=== PATIENT | male | born 1990 | race Caucasian/White ===

== ENCOUNTER 2025-02-03 13:03 | Outpatient (AMB) | payer OTHER, SELFPAY ==
--- NOTE | 2025-02-03 13:10 | MHC.PC.OV ---
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 Intake Note: patient here for new patient visit Manager Salt Required: No Allergies ibuprofen Adverse Reaction (Intermediate, Verified 02/03/25 13:17) asthma Tobacco use date assessed: 02/03/25 Dental Screening Dental Screen Date: 02/03/25 Did you have a dental visit in the last 12 months?: Yes Did you have a dental problem in the last 6 months where you did not have access to dental care?: No Was dental information given to patient?: Patient has dentist HPI HPI Comments History of Present Illness Details 35 year old male with a past medical history of long haul COVID, narcolepsy and cataplexy, anxiety, allergies presenting for follow up Asthma: Generally controlled unless he gets sick/uri etc. Cataplexy and narcolepsy: Follows with sleep medicine in [place]. Continues on nuvigil Long haul COVID essentially resolved with exception of persistent tachycardia. Still takes metoprolol. Vertigo, lightheadedness, fatigue resolved. He has extensive cardiac workup with Dr Ryan/[facility] previously. Noticed bump in the mid, left abdomen. Not painful. Has had for 1-2 years ROS see HPI PHYSICAL EXAM: GENERAL: Alert and oriented x 3. NAD EYES: EOMI. Anicteric. HENT: Moist mucous membranes. No scleral icterus. No cervical lymphadenopathy. LUNGS: Clear to auscultation bilaterally. CARDIOVASCULAR: Regular rate and rhythm. No murmur. No JVD. ABDOMEN: Soft, non-tender +bs EXTREMITIES: No edema. Non-tender. SKIN: small subcutaneous mass abdomen NEUROLOGIC: No focal neurological deficits. CN II-XII grossly intact PSYCHIATRIC: Cooperative. 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 1. Little interest or pleasure in doing things: not at all 2. Feeling down, depressed, or hopeless: not at all 3. Trouble falling or staying asleep, or sleeping too much: not at all 4. Feeling tired or having little energy: not at all 5. Poor appetite or overeating: not at all 6. Feeling bad about yourself - or that you are a failure or have let yourself or your family down: not at all 7. Trouble concentrating on things, such as reading the newspaper or watching television: not at all 8. Moving or speaking so slowly that other people could have noticed. Or the opposite - being so fidgety or restless that you have been moving around a lot more than usual: not at all 9. Thoughts that you would be better off or of hurting yourself in some way: not at all Total score: 0 Depression Screening Interpretation: Negative Depression Screening Done: Yes 38616 - PHQ-9 Billing: Yes Source: Developed by Drs. Toby Hickman, Lisette Jacques, Prakash Marte and colleagues, with an educational suni from [employer]. Thrive Questionnaire Date Thrive assessed: 02/03/25 I am a: Patient What is your living situation today?: I have a steady place to live Within the past 12 months, did the food you bought not last and you didn't have the money to get more?: Never true Within the past 12 months, did you worry whether your food would run out before you got money to buy more?: Never true Do you have trouble paying for medicines?: No Do you have trouble getting transportation to medical appointments?: No Do you have trouble paying your heating and electricity bill?: No Do you have trouble taking care of your child, family member or friend?: No Do you have trouble with day-to-day activities such as bathing, preparing meals, shopping, managing finances, etc.?: No Are you currently unemployed and looking for a job?: No Are you interested in more education?: No Please select the resources that you would like help with: None Currently or been in a relationship where the following occur: No concerns reported THRIVE Score: 0 AUDIT C Alcohol Use Questionnaire (AUDIT-C) 1. How often do you have a drink containing alcohol?: 2-4 times a month 2. How many drinks containing alcohol do you have on a typical day when you are drinking?: 1 or 2 3. How often do you have six or more drinks on one occasion?: Never Total Score: 2 JOHNNY-7 AMB Questionnaire JOHNNY-7 Date JOHNNY - 7 assessed: 02/03/25 Feeling nervous, anxious, or on edge: 0 = Not at all Not being able to stop or control worryin = Not at all Worrying too much about different things: 0 = Not at all Trouble relaxin = Several days Being so restless that it is hard to sit still: 0 = Not at all Becoming easily annoyed or irritable: 0 = Not at all Feeling afraid as if something awful might happen: 0 = Not at all Total JOHNNY-7 score (0-4 normal; 5-9 mild; 10-14 moderate; 15-21 severe): 1 Source: Developed by Drs. Toby Hickman, Lisette Jacques, Prakash Marte and colleagues, with an educational suni from [employer]. JOHNNY-7 Assessment Billing JOHNNY-7 Assessment Tool: JOHNNY-7 Assessment 96151 ACT Questionnaire In the past 4 weeks, how much of the time did your asthma keep you from getting as much done at work, school or at home?: None of the time During the past 4 weeks, how often have you had shortness of breath?: 1-2 times a week During the past 4 weeks, how often did your asthma symptoms wake you up at night or earlier than usual in the morning?: Not at all During the past 4 weeks, how often have you had to use your rescue inhaler or nebulizer medication?: Once a week or less How would you rate your asthma control during the past 4 weeks?: Well controlled Score: 22 Physical exam (Primary Care) Vital Signs: Last Vital Signs Temp 98.1 F 02/03/25 13:24 Pulse 74 02/03/25 13:24 Resp 16 02/03/25 13:24 BP 112/60 02/03/25 13:24 Pulse Ox 98 02/03/25 13:24 Oxygen Delivery Method Room Air 02/03/25 13:24 BMI result Body Mass Index 27.6 Tobacco/Smoking Status: Tobacco use Status Tobacco use date assessed 02/03/25 02/03/25 13:21 Patient Tobacco Use Status Never used Tobacco 02/03/25 13:21 e-Cigarette/Vaping Use Never Used 02/03/25 13:21 PHQ-9: PHQ-9 Score PHQ-9: Total score 0 02/03/25 13:33 Depression Screening Interpretation: Negative Thrive Assessment: Date of Thrive Assessment Date Thrive assessed 02/03/25 02/03/25 13:13 Currently or been in a relationship where the following occur: No concerns reported Coding Level of Care Code Est Pt Level 5 (99399) Diagnoses 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 Narcolepsy type: primary with cataplexy Moderate persistent asthma without complication J45.40 Asthma complication type: uncomplicated COVID-19 long hauler U09.9 Additional Codes JOHNNY-7 Assessment Billing - JOHNNY-7 Assessment Tool: JOHNNY-7 Assessment 00390 ([id number]) PHQ-9 - 13242 - PHQ-9 Billing: Yes ([id number]) Time Spent (min) 45 Assessment & Plan Assessment & Plan (1) Narcolepsy: Code(s): G47.419 - Narcolepsy without cataplexy Category: Medical Qualifiers: Narcolepsy type: primary with cataplexy Qualified Code(s): G47.411 - Narcolepsy with cataplexy Plan: continue follow up neurology stable on current medications (2) Moderate persistent asthma: Code(s): J45.40 - Moderate persistent asthma, uncomplicated Category: Medical Qualifiers: Asthma complication type: uncomplicated Qualified Code(s): J45.40 - Moderate persistent asthma, uncomplicated Plan: stable on current medications (3) COVID-19 long hauler: Code(s): U09.9 - Post COVID-19 condition, unspecified Category: Medical Plan: resolved with exception of ongoing well treated tachycardia Plan Abdominal mass, likley lipoma-u/s ordered Orders: Orders Comprehensive Met. Panel 02/03/25 Z13.0 - Encounter for screening for diseases of the blood and blood-forming organs and certain disorders involving the immune mechanism, Z13.220 - Encounter for screening for lipoid disorders, Z13.228 - Encounter for screening for other metabolic disorders, Z13.29 - Encounter for screening for other suspected endocrine disorder Lipid Panel 02/03/25 Z13.0 - Encounter for screening for diseases of the blood and blood-forming organs and certain disorders involving the immune mechanism, Z13.220 - Encounter for screening for lipoid disorders, Z13.228 - Encounter for screening for other metabolic disorders, Z13.29 - Encounter for screening for other suspected endocrine disorder TSH reflex Free T4 02/03/25 Z13.0 - Encounter for screening for diseases of the blood and blood-forming organs and certain disorders involving the immune mechanism, Z13.220 - Encounter for screening for lipoid disorders, Z13.228 - Encounter for screening for other metabolic disorders, Z13.29 - Encounter for screening for other suspected endocrine disorder UA w Microscopic 02/03/25 Z13.0 - Encounter for screening for diseases of the blood and blood-forming organs and certain disorders involving the immune mechanism, Z13.228 - Encounter for screening for other metabolic disorders, Z13.29 - Encounter for screening for other suspected endocrine disorder Complete Blood Count Auto Diff 02/03/25 Z13.0 - Encounter for screening for diseases of the blood and blood-forming organs and certain disorders involving the immune mechanism, Z13.220 - Encounter for screening for lipoid disorders, Z13.228 - Encounter for screening for other metabolic disorders, Z13.29 - Encounter for screening for other suspected endocrine disorder US abdomen limited 02/03/25 R19.00 - Intra-abdominal and pelvic swelling, mass and lump, unspecified site Medications: New metoprolol succinate ER 50 mg PO DAILY 90 tabs 3RF
[2025-02-03 13:24] VITALS: BP 112/60; PULSE 74; RESP 16; TEMP 36.7; O2SAT 98; BMI 27.6
--- OUTSIDE RECORDS SUMMARY | 2025-02-03 14:40 | XMS_ITS | Clinical Summary ---
Author Organization [address] [facility] Address [address] [place] [address] Phone Care Team Providers Care Crm Technical Lead Name Role Phone Osiel Tierney MD Primary Care Provide r Allergies Active Allergy Reactions Criticality Noted Date Comments Cat Dander 12/08/2014 Runny nose Dog Dander 12/08/2014 Nsaids (Non-Steroidal Anti-Inflammatory Drug) Wheezing 01/24/2006 chest tightness noted sometime in the past when ibuprofen taken. Pollen Extracts 12/08/2014 Swelling eyes , itchy throat Shellfish Containing Products 10/17/2014 Medications fluticasone-tesfaye meterol (ADVAIR DISKUS) 250-50 mcg/dose diskus inhaler Inhale 1 puff by mouth. 3 Active fluticasone-tesfaye meterol (ADVAIR DISKUS) 250-50 mcg/dose diskus inhaler Inhale 1 Dose 2 (two) times a day. 3 Active budesonide-form oteroL (Symbicort) 160-4.5 mcg/actuation inhaler Inhale 2 puffs by mouth. 3 Active metoprolol succinate (TOPROL-XL) 25 mg 24 hr tablet Take 1 tablet (25 mg total) by mouth 1 (one) time each day. Active montelukast (SINGULAIR) 10 mg tablet Take 1 tablet (10 mg total) by mouth. 0 Active EPINEPHrine (EpiPen 2-Antonio) 0.3 mg/0.3 mL injection Inject 1 Dose as directed. 0 Active ketoconazole (NIZORAL) 2 % cream Apply topically 2 times daily for 2 weeks. 0 Active armodafiniL (NUVIGIL) 250 mg tablet Take 1 tablet (250 mg total) by mouth 1 (one) time each day. 9 Active acetaminophen (Tylenol Extra Strength) 500 mg tablet Take by mouth. Activ e predniSONE (DELTASONE) 20 mg tablet 2 tab po x 1 and then 1 tab po qd x 6 days 8 each 4 Active albuterol HFA (PROAIR HFA ; PROVENTIL HFA ; VENTOLIN HFA) 90 mcg/actuation inhaler Inhale 2 puffs by mouth every 6 (six) hours if needed for wheezing. 6.7 g 11 4 11/01/20 25 Active albuterol 2.5 mg /3 mL (0.083 %) nebulizer solution Take 3 mL (2.5 mg total) by nebulization every 4 (four) hours if needed for wheezing. 200 mL 1 4 Active Active Problems Problem Noted Date Diagnosed Date COVID-19 marciano gonzalez 08/27/2021 Postviral fatigue syndrome 05/05/2021 Overview (01/22/2024): Last Assessment & Plan: Looking for extension of FMLA. Letter is provided. The patient may return to work on 05/10/21 with following restrictions- light duty, sedentary work, limited to 6 hours per day- See below for more details, only lifting up to 10 lbs, no pushing or pulling and other heavy work. Initial 3 weeks till 05/31/2021-- 6 hours per day for 3 days a week-->next 2 weeks 06/14/2021-- 6 hours per day for 5 days a week-->next 3 weeks 07/05/2021-->8hr days 5 days a week of sedentary work. He will be reevluated for determining complete return to work with out restrictions. Meantime rferred to POST COVID clinic at [facility] Infectious disease for further evaluation. He has Appointment scheduled with Lia Alvarado in 07/2021. History of 2019 novel coronavirus disease (COVID -19) 04/04/2021 Tachycardia 03/03/2021 Overview (01/22/2024): Last Assessment & Plan: Patient feels fatigued I told him I suspect that is Covid he still has an awful chronic cough his lungs are clear this may be a tracheobronchitis and is scheduled to see pulmonary medicine on Monday mainly for the pulmonary nodule found on CAT scan. He needs to discuss the cough with pulmonary to see if they needed continuation of a course of steroids or other therapy. Being a viral illness there may be no course other than supportive care. The cough is tiring him out increasing his heart rate is making fatigued short of breath and lethargic. I doubt there is any evidence of Covid myopathy the patient will have an echocardiogram done this Monday if the echo is normal then I do not see a need for any further cardiac work-up. He is mildly orthostatic which I suspect is secondary to volume depletion I encouraged him to hydrate regularly. The plan will be the echo. He still has mild orthostatic symptoms on exam and signs on exam but no evidence of overt heart failure no coronary disease. No thyroid disease no anemia no stimulants I told him he can start walking but not exercising heavy until we get the echocardiogram done. He can participate in walking and yoga without limitation for now PSVT (paroxysmal supraventricular tachycardia) 0 02/26/2021 Pulmonary nodule 02/15/2021 Overview (01/22/2024): Noted on CT from [facility] on 02/12/2021. Nonspecific 5 mm noncalcified solid nodule of the right lower lobe. Refer to pulmonology for follow-up screening. Moderate persistent asthma without complication 07/15/2020 Tinea versicolor 01/28/2011 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 Overview (01/22/2024): Previously followed by Tomeka Maria, [facility] Nuvigil 250 mg daily Xanax 0.25 mg as needed Allergic rhinitis due to allergen 12/22/2005 Mild intermittent asthma 12/22/2005 Overview (01/22/2024): Previously hospitalized for his asthma, no known h/o intubation Encounters Date Type Department Care Team Description 12/19/2024 Telephone Pulmonolgy - [place] [address] [facility] [address] [place] [address] Dio Ahn [place] Fitting for DME ([employer] Nebulizer) from Last 3 Months Immunizations Name Administration Dates Next Due DTP 07/29/1992, 9,1988,05/24,1988 [id number] (Pentacel) 2mo to less than 5yo 09/20/1989 Hepatitis B Pediatric (Enger ix B; Recombivax HB) to less than 20 yo 10/05/1999,05/05/1999,03/19/1999 Influenza trivalent, with pr eservative (Fluzone; Afluria) 6mo and older 10/17/2014,12/08/2006,09/05/2005,10/04,09/19/2001,09/27/2000,09/10/1999 MMR, measles mumps and rubel la Live (Priorix; M-M-R II) 12mo and older 03/19/1999,05/26/1989 Meningococcal MCV4P 03/19/2009 Moderna SARS-CoV-2 COVID-19, mRNA, LNP-S, preservative free 12/20/2021 OPV 07/29/1992, 9,1988,03/28 Pfizer SARS-CoV-2 COVID-19, mRNA, LNP-S, preservative free 06/02/2021,05/12/2021 Pneumococcal polysaccharide 23 valent (Pneumovax 23) 2yo and older 10/17/2014 Td Tetanus diptheria (Tdvax) 7yo and older 06/15/2004,05/05/1999 Tdap Tetanus diptheria acell ular pertussis (Boostrix; Adacel) 7yo and older 05/08/2009 Surgical History Surgery Date Site/Laterality Comments WISDOM TOOTH EXTRACTION PROCEDURE: HISTORICAL WISDOM TEETH EXTRACTION Medical History Medical History Date Comments Allergic rhinitis due to oth er allergen DX:Allergic rhinitis due to other allergen; COMMENT: ENVIRONMENTAL ALLERGIES-FOLLOWED BY DR. GERMAIN X 3 YRS WITHOUT BENEFIT Unspecified asthma(493.90) DX:Un specified asthma(493.90); COMMENT: HOSP X2 IN 2ND YR OF LIFE Other acne DX:Other acne Varicella DX:Varicella 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 DX:Narc olepsy and cataplexy Covid-19 02/08/2021 DX:COVID-19 Family History Medical History Relation Name Comments Cataracts Brother 1 Heart attack Grandparent 1 Glaucoma Grandparent 2 Thyroid disease Mother Relation Name Status Comments Brother 1 Brother 2 Alive LELAND ; h ealthy Brother 3 Alive 11/28 RACHEL ; healthy Brother 4 Alive STEP-RIGO 1989 Father Alive 1968; healt hy Grandparent 1 Grandparent 2 Maternal Grandmother Alive asthma, pre-diabetes; obesity Mother Alive 1968; no co ntact with her Paternal Grandmother Alive healthy Sister 1 Alive STEP-DAMIAN Sister 2 Alive SHAYY--JOYA ES WITH HER MOM Sister 3 Alive 11/28 sister moth er's side; mentally handicapped Social History Tobacco Use Types Packs/Day Years Used Date Smoking Tobacco: Never Smokeless Tobacco: Never Alcohol Use Standard Drinks/Week Comments Yes 1.7 (1 standard drink = 0.6 oz p ure alcohol) Sex and Gender Information Value Date Recorded Sex Assigned at Not on file Legal Sex Male 7:15 AM EST Gender Identity Not on file Sexual Orientation Not on file Obstetrics History Last Filed Vital Signs Vital Sign Reading Time Taken Comments Blood Pressure 136/80 11/01/2024 1:12 PM EST Pulse 88 11/01/2024 1:12 PM EST Temperature 36.2 ??C (97.1 ??F) 11/01/2024 1:12 PM ES T Respiratory Rate 20 11/01/2024 1:12 PM EST Oxygen Saturation 96% 11/01/2024 1:12 PM EST Inhaled Oxygen Concentration - - Weight 78.7 kg (173 lb 9.6 oz) 11/01/2024 1:12 P M EST Height 170.2 cm (5' 7 ) 11/01/2024 1:12 PM EST Body Mass Index 27.19 11/01/2024 1:12 PM EST Plan of Treatment Upcoming Encounters Date Type Department Care Team (Late st Contact Info) Description 05/02/2025 9:45 AM EDT Office Visit Pulmonolgy - [place] [address] [facility] [address] [place] [id number] Kane Miranda MD [address] [facility] [address] [place] [address] Health Maintenance Due Date Last Done Comments Pneumococcal Vaccine: Pediatrics (0 to 5 Years) and At-Risk Patients (6 to 64 Years) (2 of 2 - PCV) 10/17/2015 10/17/2014 Cholesterol Screening (Lipid Panel) 11/05/2022 Depression Screening 11/05/2022 HIV Screening 11/05/2022 Hepatitis C Screening 11/05/2022 Social Influencers of Health Screening 11/05/2022 COVID-19 Vaccine ( season) 2024 12/20/2021, 06/02/2021, 05/12/2021, Additional history exists Influenza Vaccine (#1) 2024 , 10/17/2014, 12/08/2006, Additional history exists DTaP,Tdap,and Td Vaccines (10 - Td or Tdap) 02/21/2033 02/21/2023, 05/08/2009, 06/15/2004, Additional history exists HIB Vaccines Completed 09/20/1989, 09/20/1989 IPV Vaccines Completed 07/29/1992, 08/28, 09/20/1989, Additional history exists MMR Vaccines Completed 03/19/1999, 05/26/1989 Hepatitis B Vaccines Completed 10/05/1999, 05/05/1999, 03/19/1999 Meningococcal ACWY Vaccine Aged Out 03/19/2009, No longer eligible based on patient's age to complete this topic HPV Vaccines Aged Out No longer eligi ble based on patient's age to complete this topic Hepatitis A Vaccines Aged Out No long er eligible based on patient's age to complete this topic Meningococcal B Vacine Aged Out No lo nger eligible based on patient's age to complete this topic RSV Immunization Patients Under 20 months Aged Out No longer eligible based on patient's age to complete this topic Varicella Vaccines Aged Out No longer eligible based on patient's age to complete this topic Insurance [facility] Care Teams Crm Technical Lead Relationship Specialty Start Date End Date Osiel Tierney MD PCP - General Internal Medicine 11/26/18
== END 2025-02-03 13:53 | disposition home or self-care (01) ==
PROVIDERS: PCP Internal Medicine; Visit Provider Internal Medicine
DX: G47.411 Narcolepsy with cataplexy (principal); J45.40 Moderate persistent asthma, uncomplicated; U09.9 Post COVID-19 condition, unspecified

== ENCOUNTER → 2025-02-03 13:03 | Outpatient (BNVA) | payer OTHER, SELFPAY | PROVIDERS: PCP Internal Medicine; Visit Provider Internal Medicine | DX: G47.411 Narcolepsy with cataplexy (principal); J45.40 Moderate persistent asthma, uncomplicated; Z86.16 Personal history of COVID-19 | CPT/HCPCS: 96127; 96160 ==

== ENCOUNTER 2025-02-10 10:46 | Outpatient (REF) | payer OTHER, SELFPAY ==
[2025-02-10 14:21] LABS: MANUAL DIFF FLAG NO
[2025-02-10 14:26] LABS: Basophils Percent Auto 0.6 % (0-2); Eosinophils Absolute Auto 0.2 X10*3/uL (0.0-0.4); Eosinophils Percent Auto 5.3 % (0-4); Hematocrit 41.7 % (42.0-52.0); Hemoglobin 14.2 g/dl (14.0-18.0); Lymphocytes Absolute Auto 1.4 X10*3/uL (1.2-4.9); Lymphocytes Percent Auto 39.8 % (20-40); Mean Corpuscular HGB Conc 34.1 g/dl (31.0-36.0); Mean Corpuscular Hemoglobin 31.2 pg (27.0-33.0); Mean Corpuscular Volume 91.6 fL (80.0-98.0); Mean Platelet Volume 9.9 fL (9.4-12.4); Monocytes Absolute Auto 0.3 X10*3/uL (0.1-1.2); Monocytes Percent Auto 8.8 % (2-11); Neutrophils Absolute Auto 1.6 x10*3/uL (2.0-8.3); Neutrophils Percent Auto 45.5 % (45-73); Platelet Count 163 X10*3/uL (160-400); Red Blood Count 4.55 X10*6/uL (4.60-5.80); Red Cell Distribution Width 12.9 % (11.0-16.0); White Blood Count 3.4 X10*3/uL (4.8-10.8)
[2025-02-10 14:37] LABS: Appearance Urine Clear; Color Urine Yellow; Glucose Urine UA Negative (Negative); Leukocyte Esterase Urine Negative (Negative); Nitrite Urine Negative (Negative); Specific Gravity - Urine 1.025 (1.005-1.025); Urine Blood Negative (Negative); Urine Ketones Negative (Negative); Urine Protein Trace mg/dL (Neg-Trace)
[2025-02-10 14:40] LABS: Bacteria Urine None Seen (None Seen); Hyaline Casts Urine 0-2 /LPF (0-2); RBC Urine 0-2 /HPF (0-2); Squamous Epithelial Cell Urine 0-2 /HPF (0-2); WBC Urine 0-5 /HPF (0-5)
[2025-02-10 14:58] LABS: Alanine Aminotransferase 49 U/L (0-40); Albumin Level 4.1 g/dL (3.5-5.0); Alkaline Phosphatase 87 U/L (39-117); Anion Gap 8 (12-20); Aspartate Amino Transferase 45 U/L (5-37); Bilirubin Total 0.3 mg/dL (0.0-1.0); Blood Urea Nitrogen 16 mg/dL (9-16); Calcium 8.8 mg/dL (8.4-10.2); Carbon Dioxide 29 mmol/L (22-29); Chloride 107 mmol/L (96-108); Cholesterol 191 mg/dL (<200); Estimated Glomerular Filt Rate > 60; Glucose Random 94 mg/dL (60-115); HDL Cholesterol 48 mg/dL (>40); LDL Cholesterol Calculated 124 mg/dL (<100); Sodium 140 mmol/L (135-145); Total Protein 6.6 g/dL (6.5-8.0); Triglycerides 95 mg/dL (<150)
[2025-02-10 15:20] LABS: TSH reflex Free T4 1.11 uIU/mL (0.32-4.0)
== END 2025-02-10 10:47 | disposition home or self-care (01) ==
LOC: HO.WFDLDS 10:46
PROVIDERS: Visit Provider Internal Medicine
DX: Z13.0 Encounter for screening for diseases of the blood and blood-forming organs and certain disorders involving the immune mechanism (principal); Z13.220 Encounter for screening for lipoid disorders; Z13.29 Encounter for screening for other suspected endocrine disorder; Z13.228 Encounter for screening for other metabolic disorders
CPT/HCPCS: 36415; 80053; 80061; 81001; 84443; 85025

== ENCOUNTER 2025-02-20 11:16 | Outpatient (REF) | payer OTHER, SELFPAY ==
--- NOTE | ~2025-02-20 | US_ITS ---
CLINICAL HISTORY: R19.00 - Intra-abdominal and pelvic swelling, mass and lump, unspecified... US abdomen limited Comparison: None Findings: Area of concern corresponds to an ill-defined 2.0 x 1.8 x 0.8 cm subcutaneous mass with similar echogenicity is fat, possible lipoma. There are no other cystic or solid masses in the areas scanned. IMPRESSION: 1. Possible lipoma corresponding to the area of patient's concern. Clinical follow-up recommended. This document has been electronically signed by: Tk Booth MD on 02/21/2025 08:27:27
== END 2025-02-20 11:17 | disposition home or self-care (01) ==
LOC: HO.HMGCX 11:16
PROVIDERS: PCP Internal Medicine; Visit Provider Internal Medicine
DX: R19.00 Intra-abdominal and pelvic swelling, mass and lump, unspecified site (principal)
CPT/HCPCS: 76705

== ENCOUNTER → 2025-02-20 11:21 | Outpatient (BNV) | payer OTHER, SELFPAY | PROVIDERS: PCP Internal Medicine; Visit Provider Specialist | DX: R19.00 Intra-abdominal and pelvic swelling, mass and lump, unspecified site (principal) | CPT/HCPCS: 76705 ==

== ENCOUNTER 2025-10-21 14:50 | Outpatient (AMB) | payer OTHER, SELFPAY ==
--- OUTSIDE RECORDS SUMMARY | 2025-10-17 08:45 | XMS_ITS | Encounter Summary ---
Author Organization [facility] Address [address] [place] [address] Care Team Providers Care Hot Patcher Name Role Phone Osiel Tierney MD Primary Care Provide r Reason for Visit * Reason Comments Shortness of Breath Sick visit SOB Encounter Details Date Type Department Care Team ([facility] Contact Info) Description 10/17/2025 8:45 AM EST Office Visit Pulmonology - [address] [place] [address] Kane Miranda MD [address] [place] [phone] Moderate persistent asthma without complication (Primary Dx) Social History Tobacco Use Types Packs/Day Years Used Date Smoking Tobacco: Never Smokeless Tobacco: Never Tobacco Cessation:Counseling Given: Not Answered Alcohol Use Standard Drinks/Week Comments Yes 1.7 (1 standard drink = 0.6 oz p ure alcohol) Sex and Gender Information Value Date Recorded Sex Assigned at Not on file Legal Sex Male 7:15 AM EST Gender Identity Not on file Sexual Orientation Not on file Travel History Travel Start Travel End [place] 10/02/2025 10/16/2025 documented as of this encounter Last Filed Vital Signs Vital Sign Reading Time Taken Comments Blood Pressure 126/70 10/17/2025 9:03 AM EST Pulse 90 10/17/2025 9:03 AM EST Temperature 36.6 C (97.9 F) 10/17/2025 9:03 AM EST Respiratory Rate 20 10/17/2025 9:03 AM EST Oxygen Saturation 96% 10/17/2025 9:03 AM EST Inhaled Oxygen Concentration - - Weight 83.9 kg (185 lb) 10/17/2025 9:03 AM EST Height 170.2 cm (5' 7 ) 10/17/2025 9:03 AM EST Body Mass Index 28.98 10/17/2025 9:03 AM EST documented in this encounter Ordered Prescriptions Prescription Sig Dispense Quantity Refills Last Filled Start Date End Date fluticasone propion-salmeteroL (Wixela Inhub) 500-50 mcg/dose diskus inhaler Inhale 1 puff by mouth 2 (two) times a day. Rinse mouth with water after use to reduce aftertaste and incidence of candidiasis. Do not swallow. 1 each 10/17/2025 montelukast (SINGULAIR) 10 mg tablet Take 1 tablet (10 mg total) by mouth at bedtime. 30 each 10/17/2025 documented in this encounter Progress Notes * Kane Miranda MD - 10/17/2025 8:45 AM EST ADULT PULMONARY CONSULT CHIEF COMPLAINT or REASON FOR CONSULTATION: Shortness of Breath (Sick visit SOB ) I have obtained verbal consent from Miller Jimenez prior to the recording. I have advised Miller Jimenez that he may refuse the recording and require the recording to be turned off at any time duringthis encounter. History of Present Illness The patient is a 35-year-old male who presents for evaluation of shortness of breath. He was previously seen for a COVID-19 infection a couple of years ago and was prescribed a low doseof prednisone, which he has since discontinued. He was last seen 2.5 weeks ago, at which time he requested a prescription for prednisone in anticipation of his moon trip to [place], as he was not feeling well. During his stay in [place], he experienced significant shortness of breath, prompting him to self-administer prednisone 20 mg on Monday, followed by an increased dose of 40 mg on Monday, and then back to 20 mg. Despite this, his symptoms worsened, culminating in shortness of breath and coughing on Monday, to the point where he was unable to ambulate without coughing. Upon his returnye, he took a hot shower, which provided some relief. He has not undergone any testing for influenza or COVID-19. He reports no anxiety or depression. Heis currently on Wixela 250/50, which he finds beneficial, although he believes the branded Advair was more effective. He has been off prednisone for several years. He is currently on a 20 mg dose of p rednisone, which he reports as helpful. He does not have any cough medicine at home and reports no mucus production. He also suffers from seasonal allergies. SOCIAL HISTORY Marital Status: Hobbies: Visiting historic sites ALLERGIES: Current Allergies[1] ACTIVE MEDICATIONS: Medications Taking[2] PROVIDER ATTESTS THAT THE MEDICATION LIST WAS OBTAINED, REVIEWED AND UPDATED. REVIEW OF SYSTEMS: GENERAL: No wt lost or fever ENT: +snoring Eye: RESPIRATORY: + cough, wheezing and dyspnea CARDIOVASCULAR: No chest pain, leg swelling or palpitations GI: No abdominal discomfort, MUSCULOSKELETAL: +backpain HEMATOLOGY/LYMPHOLOGY No prolonged bleeding, easy bruisability ENDOCRINE: no DM NEURO: No focal weakness : Psych: no depression PAST MEDICAL HISTORY: Patient Active Problem List Diagnosis Date Noted COVID-19 long hauler 08/27/2021 Postviral fatigue syndrome 05/05/2021 History of 2019 novel coronavirus disease (COVID-19) 04/04/2021 Tachycardia 03/03/2021 PSVT (paroxysmal supraventricular tachycardia) ([facility] V24) 02/26/2021 Pulmonary nodule 02/15/2021 Moderate persistent asthma without complication 07/15/2020 Tinea versicolor 01/28/2011 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 Allergic rhinitis due to allergen 12/22/2005 Mild intermittent asthma 12/22/2005 Surgical History[3] FAMILY HISTORY: Family History[4] OCCUPATION OR OCCUPATION EXPOSURE: SOCIAL HISTORY Social History Socioeconomic History Marital status: Single Spouse name: Not on file Number of children: Not on file Years of education: Not on file Highest education level: Not on file Occupational History Not on file Tobacco Use Smoking status: Never Smokeless tobacco: Never Substance and Sexual Activity Alcohol use: Yes Alcohol/week: 1.7 standard drinks of alcohol Drug use: Yes Types: Marijuana/Cannabis Sexual activity: Not on file Other Topics Concern Not on file Social History Narrative Lives with [facility] IMMUNIZATION: Immunization History Administered Date(s) Administered DTP 1988, 1988, 1988, 09/20/1989, 07/29/1992 [id number] (Pentacel) 2mo to less than 5yo 09/20/1989 Hepatitis B Pediatric (Engerix B; Recombivax HB) to less than 20 yo 03/19/1999, 05/05/1999, 10/05/1999 Influenza trivalent, with preservative (Fluzone; Afluria) 6mo and older 09/10/1999, 09/27/2000, 09/19/2001, 10/04/2002, 09/05/2005, 12/08/2006, 10/17/2014 MMR, measles mumps and rubella Live (Priorix; M-M-R II) 12mo and older 05/26/1989, 03/19/1999 Meningococcal MCV4P 03/19/2009 Moderna SARS-CoV-2 COVID-19, mRNA, LNP-S, preservative free 12/20/2021 OPV 1988, 1988, 09/20/1989, 07/29/1992 Pfizer SARS-CoV-2 COVID-19, mRNA, LNP-S, preservative free 05/12/2021, 06/02/2021 Pneumococcal polysaccharide 23 valent (Pneumovax 23) 2yo and older 10/17/2014 Td Tetanus diptheria (Tdvax) 7yo and older 05/05/1999, 06/15/2004 Tdap Tetanus diptheria acellular pertussis (Boostrix; Adacel) 7yo and older 05/08/2009 PHYSICAL EXAM: Visit Vitals BP 126/70 (BP Location: Left arm, Patient Position: Sitting, BP Cuff Size: Adult) Pulse 90 Temp 36.6 ??C (97.9 ??F) (Temporal) Resp 20 Ht 1.702 m (67 ) Wt 83.9 kg (185 lb) SpO2 96% BMI 28.98 kg/m?? Smoking Status Never BSA 1.96 m?? APPEARANCE: Alert and in no acute distress. EYES: Conjunctiva and sclera normal. NOSE/SINUS: Nares normal. Septum midline. Mucosa No drainage or sinus tenderness. MOUTH/THROAT: no erythema or exudates. Mallampati class 2 NECK: Neck supple, thyroid symmetric and of normal size. HEART: RRR with normal S1 and S2, no murmurs, no gallops, no JVD appreciated. LUNG: CTA b/l, no wheezing or bronchial bs. + cough with deep inspiration ABDOMEN: Bowel sounds normoactive, soft, non-tender EXTREMITIES: no clubbing, cyanosis, or edema. LYMPH NODES: No cervical and supra-clavicular lymphadenopathy. NEURO: Awake, alert and oriented x 3, no focalization Derm: no rash DIAGNOSTIC DATA: CARDIOPULMONARY TEST: Last Pulmonary function Test showed: DATE OF SERVICE: 12/01/21 INDICATION: SOB SPIROMETRY: FEV1 is 112 % predicted and an FVC is 110 % predicted.The FEV1/FVC ratio is 101% of normal, No significant response to bronchodilators noted. Maximum voluntary ventilation 101% predicted. LUNG VOLUMES: Total lung capacity (TLC): 101% predicted. Residual volume (RV): 66% predicted RV/TLC ratio is 63% of normal End respiratory volume (ERV): 159% predicted DIFFUSION CAPACITY: DLCO 105% predicted. DlCO/VA 104% of predicted RADIOLOGIST IMAGIN05/02/25 FINDINGS: Lungs: No focal consolidation or evidence of pulmonary edema. Pleura: No pleural effusion or pneumothorax. Heart/Mediastinum: Cardiomediastinal silhouette is within normal limits. Bones : No acute findings. IMPRESSION: Normal exam. ASSESSMENT: ICD-10-CM ICD-9-CM 1. Moderate persistent asthma without complication J45.40 493.90 CBC and differential Immunoglobulin IgE Allergy evaluation Allergy evaluation [facility] PLAN: Assessment & Plan He is coughing today, vital signs stable. No active wheezing but cough with deep respiration. This is his second episode in past 3 months, he had a chest x-ray in April that showed no active lung disease. I will increase his Wixela from 250- 500, I will also add montelukast. I will check CBC for eosinophils plus food allergy panel testing. He will come back in 4 months - Follow up with Osiel Tierney MD for the other co-morbilities. - I spend 31 Minutes on this visit. The patient was educated about his problems, where assessment and plan was reviewed and explained, All questions were answered. This includes: Preparing to see the patient, obtaining and/or reviewing separately obtained history, performing a medically appropriate exam, ordering medications, tests, or procedures, documenting clinical information in the electronic health record, and independently interpreting results. RETURN TO THE NEXT VISIT: Based on physical exam, symptomatology, tests requested and baseline pulmonary evaluation/disease, I instructed the patient to come back to see me in 4 mths for reevaluation after the test has been done or earlier if the patient needed. Thanks Osiel Tierney MD for allowing me to have the opportunity to assist in the care ofthis patient. [1] Allergies Allergen Reactions Cat Dander Runny nose Dog Dander Nsaids (Non-Steroidal Anti-Inflammatory Drug) Wheezing chest tightness noted sometime in the past when ibuprofen taken. Pollen Extracts Swelling eyes , itchy throat Shellfish Containing Products [2] Outpatient Medications Marked as Taking for the 10/17/25 encounter (Office Visit) with Kane Miranda MD Medication Sig Dispense Refill acetaminophen (Tylenol Extra Strength) 500 mg tablet Take by mouth. albuterol 2.5 mg /3 mL (0.083 %) nebulizer solution Take 3 mL (2.5 mg total) by nebulization every 4 (four) hours if needed for wheezing. 200 mL 1 albuterol HFA (PROAIR HFA ; PROVENTIL HFA ; VENTOLIN HFA) 90 mcg/actuation inhaler Inhale 2 puffs by mouth every 6 (six) hours if needed for wheezing. 6.7 g 11 armodafiniL (NUVIGIL) 250 mg tablet Take 1 tablet (250 mg total) by mouth 1 (one) time each day. budesonide-formoteroL (Symbicort) 160-4.5 mcg/actuation inhaler Inhale 2 puffs by mouth. EPINEPHrine (EpiPen 2-Antonio) 0.3 mg/0.3 mL injection Inject 1 Dose as directed. ketoconazole (NIZORAL) 2 % cream Apply topically 2 times daily for 2 weeks. metoprolol succinate (TOPROL-XL) 25 mg 24 hr tablet Take 1 tablet (25 mg total) by mouth 1 (one) time each day. predniSONE (DELTASONE) 20 mg tablet 2 tab po x 1 and then 1 tab po qd x 6 days 8 each 0 [DISCONTINUED] fluticasone-salmeterol (ADVAIR DISKUS) 250-50 mcg/dose diskus inhaler Inhale 1 puff by mouth. [DISCONTINUED] fluticasone-salmeterol (ADVAIR DISKUS) 250-50 mcg/dose diskus inhaler Inhale 1 Dose 2 (two) times a day. [DISCONTINUED] Wixela Inhub 250-50 mcg/dose diskus inhaler INHALE 1 PUFF INTO THE LUNGS 2 TIMES DAILY FOR 90 DAYS. 180 each 3 [3] Past Surgical History: Procedure Laterality Date WISDOM TOOTH EXTRACTION PROCEDURE: HISTORICAL WISDOM TEETH EXTRACTION [4] Family History Problem Relation Name Age of Onset Thyroid disease Mother Heart attack Grandparent Cataracts Brother Glaucoma Grandparent documented in this encounter Plan of Treatment Upcoming Encounters Date Type Department Care Team ([facility] st Contact Info) Description 2026 8:45 AM EST Office Visit Pulmonology [address] [phone] Kane Miranda MD [address] [place] [phone] 09/29/2026 9:45 AM EST Office Visit Pulmonology [address] [phone] Kane Miranda MD [address] [place] [address] [phone] Scheduled Orders Name Type Priority Associated Diagnoses Orde r Schedule CBC and differential Lab Routine Moderate persistent asthma without complication 1 Occurrences starting 10/17/2025 until 10/17/2026 Immunoglobulin IgE Lab Routine Moderate persistent asthma without complication 1 Occurrences starting 10/17/2025 until 10/17/2026 Allergy evaluation , [facility] Lab Routine Moderate persistent asthma without complication 1 Occurrences starting 10/17/2025 until 10/17/2026 documented as of this encounter Visit Diagnoses Diagnosis Moderate persistent asthma without complication- Primary documented in this encounter Discontinued Medications Medication Sig Discontinue Reason Start Date End Da te fluticasone-salmeterol (ADVAIR DISKUS) 250-50 mcg/dose diskus inhaler Inhale 1 puff by mouth. 10/26/2023 10/17/2025 fluticasone-salmeterol (ADVAIR DISKUS) 250-50 mcg/dose diskus inhaler Inhale 1 Dose 2 (two) times a day. 03/29/2023 10/17/2025 Wixela Inhub 250-50 mcg/dose diskus inhaler INHALE 1 PUFF INTO THE LUNGS 2 TIMES DAILY FOR 90 DAYS. 03/11/2025 10/17/2025 documented as of this encounter Care Teams Hot Patcher Relationship Specialty Start Date End Date Osiel Tierney MD [address] [place] [address] PCP - General Internal Medicine 11/26/18 documented as of this encounter
--- NOTE | 2025-10-21 14:53 | MHC.PC.OV ---
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 Recent URI still flare Cataplexy and narcolepsy: Follows with sleep medicine in [place]. Continues on nuvigil Long haul COVID essentially resolved with exception of persistent tachycardia. Still takes metoprolol. Vertigo, lightheadedness, fatigue resolved. He has extensive cardiac workup with Dr Ryan/PVC previously. Noticed bump in the mid, left abdomen. Not painful. Has had for 1-2 years. u/s was consistent with lipoma ROS see HPI PHYSICAL EXAM: GENERAL: Alert and oriented x 3. NAD EYES: EOMI. Anicteric. HENT: Moist mucous membranes. No scleral icterus. No cervical lymphadenopathy. LUNGS: Clear to auscultation bilaterally. CARDIOVASCULAR: Regular rate and rhythm. No murmur. No JVD. ABDOMEN: Soft, non-tender +bs EXTREMITIES: No edema. Non-tender. SKIN: small subcutaneous mass abdomen NEUROLOGIC: No focal neurological deficits. CN II-XII grossly intact PSYCHIATRIC: Cooperative. 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 Current occupational exposures/hazards: No Cognitive needs: No Hearing needs: No Vision needs: No Questionnaire Thrive Questionnaire Date Thrive assessed: 01/31/25 I am a: Patient What is your living situation today?: I have a steady place to live Within the past 12 months, did the food you bought not last and you didn't have the money to get more?: Never true Within the past 12 months, did you worry whether your food would run out before you got money to buy more?: Never true Do you have trouble paying for medicines?: No Do you have trouble getting transportation to medical appointments?: No Do you have trouble paying your heating and electricity bill?: No Do you have trouble taking care of your child, family member or friend?: No Do you have trouble with day-to-day activities such as bathing, preparing meals, shopping, managing finances, etc.?: No Are you currently unemployed and looking for a job?: No Are you interested in more education?: No Please select the resources that you would like help with: None Currently or been in a relationship where the following occur: No concerns reported THRIVE Score: 0 AUDIT C Alcohol Use Questionnaire (AUDIT-C) 1. How often do you have a drink containing alcohol?: Monthly or less 2. How many drinks containing alcohol do you have on a typical day when you are drinking?: 1 or 2 3. How often do you have six or more drinks on one occasion?: Never Total Score: 1 JOHNNY-7 AMB Questionnaire JOHNNY-7 Date JOHNNY - 7 assessed: 02/03/25 Source: Developed by Drs. Toby Hickman, Lisette Jacques, Prakash Marte and colleagues, with an educational suni from [employer]. Physical exam (Primary Care) Vital Signs: Last Vital Signs Temp 98.4 F 10/21/25 14:55 Pulse 98 10/21/25 14:55 Resp 14 10/21/25 14:55 BP 112/64 10/21/25 14:55 Pulse Ox 97 10/21/25 14:55 Oxygen Delivery Method Room Air 10/21/25 14:55 BMI result Body Mass Index 28.5 Tobacco/Smoking Status: Tobacco use Status Tobacco use date assessed 10/21/25 10/21/25 15:01 Patient Tobacco Use Status Never used Tobacco 10/21/25 14:53 e-Cigarette/Vaping Use Never Used 10/21/25 14:53 Thrive Assessment: Date of Thrive Assessment Date Thrive assessed 01/31/25 10/21/25 14:53 Currently or been in a relationship where the following occur: No concerns reported Coding Level of Care Code Est Pt Prev Care 18-39y([id number]) Diagnoses Physical exam Z00.00 Moderate persistent asthma without complication J45.40 Asthma complication type: uncomplicated 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 Narcolepsy type: primary with cataplexy Assessment & Plan Assessment & Plan (1) Physical exam: Code(s): Z00.00 - Encounter for general adult medical examination without abnormal findings (2) Moderate persistent asthma: Code(s): J45.40 - Moderate persistent asthma, uncomplicated Category: Medical Qualifiers: Asthma complication type: uncomplicated Qualified Code(s): J45.40 - Moderate persistent asthma, uncomplicated (3) Narcolepsy: Code(s): G47.419 - Narcolepsy without cataplexy Category: Medical Qualifiers: Narcolepsy type: primary with cataplexy Qualified Code(s): G47.411 - Narcolepsy with cataplexy Plan Physical exam Interval history reviewed Preventive measures for age discussed Asthma, exacerbated by recent viral infection. [facility] ordered Orders: Orders Complete Blood Count Auto Diff 10/21/25 J45.40 - Moderate persistent asthma, uncomplicated, R79.89 - Other specified abnormal findings of blood chemistry, Z13.0 - Encounter for screening for diseases of the blood and blood-forming organs and certain disorders involving the immune mechanism, Z13.220 - Encounter for screening for lipoid disorders, Z13.228 - Encounter for screening for other metabolic disorders, Z13.29 - Encounter for screening for other suspected endocrine disorder Lipid Panel 10/21/25 J45.40 - Moderate persistent asthma, uncomplicated, R79.89 - Other specified abnormal findings of blood chemistry, Z13.0 - Encounter for screening for diseases of the blood and blood-forming organs and certain disorders involving the immune mechanism, Z13.220 - Encounter for screening for lipoid disorders, Z13.228 - Encounter for screening for other metabolic disorders, Z13.29 - Encounter for screening for other suspected endocrine disorder TSH reflex Free T4 10/21/25 J45.40 - Moderate persistent asthma, uncomplicated, R79.89 - Other specified abnormal findings of blood chemistry, Z13.0 - Encounter for screening for diseases of the blood and blood-forming organs and certain disorders involving the immune mechanism, Z13.220 - Encounter for screening for lipoid disorders, Z13.228 - Encounter for screening for other metabolic disorders, Z13.29 - Encounter for screening for other suspected endocrine disorder Comprehensive Met. Panel 10/21/25 J45.40 - Moderate persistent asthma, uncomplicated, R79.89 - Other specified abnormal findings of blood chemistry, Z13.0 - Encounter for screening for diseases of the blood and blood-forming organs and certain disorders involving the immune mechanism, Z13.220 - Encounter for screening for lipoid disorders, Z13.228 - Encounter for screening for other metabolic disorders, Z13.29 - Encounter for screening for other suspected endocrine disorder Hemoglobin A1c 10/21/25 J45.40 - Moderate persistent asthma, uncomplicated, R79.89 - Other specified abnormal findings of blood chemistry, Z13.0 - Encounter for screening for diseases of the blood and blood-forming organs and certain disorders involving the immune mechanism, Z13.220 - Encounter for screening for lipoid disorders, Z13.228 - Encounter for screening for other metabolic disorders, Z13.29 - Encounter for screening for other suspected endocrine disorder IRON PROFILE 10/21/25 J45.40 - Moderate persistent asthma, uncomplicated, R79.89 - Other specified abnormal findings of blood chemistry, Z13.0 - Encounter for screening for diseases of the blood and blood-forming organs and certain disorders involving the immune mechanism, Z13.220 - Encounter for screening for lipoid disorders, Z13.228 - Encounter for screening for other metabolic disorders, Z13.29 - Encounter for screening for other suspected endocrine disorder Vitamin B12 and Folate 10/21/25 J45.40 - Moderate persistent asthma, uncomplicated, R79.89 - Other specified abnormal findings of blood chemistry, Z13.0 - Encounter for screening for diseases of the blood and blood-forming organs and certain disorders involving the immune mechanism, Z13.220 - Encounter for screening for lipoid disorders, Z13.228 - Encounter for screening for other metabolic disorders, Z13.29 - Encounter for screening for other suspected endocrine disorder Medications: New levalbuterol tartrate 45 mcg/actuation (Xopenex HFA) 2 puffs inhalation Q4-6H PRN 15 grams 3RF shortness of breath levalbuterol HCl 1.25 mg (3 mL) inhalation Q4-6H PRN 90 mL 1RF shortness of breath or wheezing azithromycin For 250 mg dose pack: take 500 mg today (day 1), then 250 mg for 4 days (days 2-5) PO 6 tabs 0RF
[2025-10-21 14:55] VITALS: BP 112/64; PULSE 98; RESP 14; TEMP 36.9; O2SAT 97; BMI 28.5
--- OUTSIDE RECORDS SUMMARY | 2025-10-21 18:38 | XMS_ITS ---
Author Name [facility] Organization Unknown Care Team Organization Name Specialty Phone Email Start Date End Da te [facility] Osiel Tierney Primary Care 10/04/2022 07/15/2024
--- OUTSIDE RECORDS SUMMARY | 2025-10-21 18:38 | XMS_ITS | Clinical Summary ---
Author Organization [facility] Address [address] [place] [address] Phone Care Team Providers Care Memory Care Program Resident Name Role Phone Osiel Tierney MD Primary Care Provide r Allergies Active Allergy Reactions Criticality Noted Date Comments Cat Dander 12/08/2014 Runny nose Dog Dander 12/08/2014 Nsaids (Non-Steroidal Anti-Inflammatory Drug) Wheezing 01/24/2006 chest tightness noted sometime in the past when ibuprofen taken. Pollen Extracts 12/08/2014 Swelling eyes , itchy throat Shellfish Containing Products 10/17/2014 Medications budesonide-for moteroL (Symbicort) 160-4.5 mcg/actuation inhaler Inhale 2 puffs by mouth. 10/30/20 23 Active metoprolol succinate (TOPROL-XL) 25 mg 24 hr tablet Take 1 tablet (25 mg total) by mouth 1 (one) time each day. Active EPINEPHrine (EpiPen 2-Antonio) 0.3 mg/0.3 mL injection Inject 1 Dose as directed. 07/15/20 20 Active ketoconazole (NIZORAL) 2 % cream Apply topically 2 times daily for 2 weeks. 01/29/20 20 Active armodafiniL (NUVIGIL) 250 mg tablet Take 1 tablet (250 mg total) by mouth 1 (one) time each day. 02/12/20 19 Active acetaminophen (Tylenol Extra Strength) 500 mg tablet Take by mouth. Activ e albuterol HFA (PROAIR HFA ; PROVENTIL HFA ; VENTOLIN HFA) 90 mcg/actuation inhaler Inhale 2 puffs by mouth every 6 (six) hours if needed for wheezing. 6.7 g 11 11/01/20 24 025 Active albuterol 2.5 mg /3 mL (0.083 %) nebulizer solution Take 3 mL (2.5 mg total) by nebulization every 4 (four) hours if needed for wheezing. 200 mL 1 11/01/20 24 Active predniSONE (DELTASONE) 20 mg tablet 2 tab po x 1 and then 1 tab po qd x 6 days 8 each 04/15/20 25 Active montelukast (SINGULAIR) 10 mg tablet Take 1 tablet (10 mg total) by mouth at bedtime. 30 each 10/17/20 25 026 Active fluticasone propion-salmet Almas (Wixela Inhub) 500-50 mcg/dose diskus inhaler Inhale 1 puff by mouth 2 (two) times a day. Rinse mouth with water after use to reduce aftertaste and incidence of candidiasis. Do not swallow. 1 each 12 10/17/20 25 026 Active fluticasone-sa lmeterol (ADVAIR DISKUS) 250-50 mcg/dose diskus inhaler Inhale 1 puff by mouth. 10/26/20 23 025 Discontinued fluticasone-sa lmeterol (ADVAIR DISKUS) 250-50 mcg/dose diskus inhaler Inhale 1 Dose 2 (two) times a day. 03/29/20 23 025 Discontinued montelukast (SINGULAIR) 10 mg tablet Take 1 tablet (10 mg total) by mouth. 07/15/20 20 025 Discontinued Wixela Inhub 250-50 mcg/dose diskus inhaler INHALE 1 PUFF INTO THE LUNGS 2 TIMES DAILY FOR 90 DAYS. 180 each 3 03/11/20 25 025 Discontinued predniSONE (DELTASONE) 20 mg tablet Take 1 tablet (20 mg total) by mouth 1 (one) time each day for 10 days. 10 each 09/29/20 25 025 Active Problems Problem Noted Date Diagnosed Date COVID-19 long hauler 08/27/2021 Postviral fatigue syndrome 05/05/2021 Overview (01/22/2024): [...] Meantime rferred to POST COVID clinic at [facility] for further evaluation. He has [...] yoga without limitation for now PSVT (paroxysmal supraventri cular tachycardia) ([facility] V24) 02/26/2021 Pulmonary nodule 02/15/2021 Overview (01/22/2024): Noted on CT from [facility] on 02/12/2021. Nonspecific 5 mm noncalcified solid nodule of the right lower lobe. Refer to pulmonology for follow-up screening. Moderate persistent asthma without complication 07/15/2020 Tinea versicolor 01/28/2011 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 Overview (01/22/2024): Previously followed by Tomeka Maria, [facility] Nuvigil 250 mg daily Xanax 0.25 mg as needed Allergic rhinitis due to allergen 12/22/2005 Mild intermittent asthma 12/22/2005 Overview (01/22/2024): Previously hospitalized for his asthma, no known h/o intubation Encounters Date Type Department Care Team Description 10/17/2025 8:45 AM EST Office Visit Pulmonology - [address] [phone] Kane Miranda MD Moderate persistent asthma without complication (Primary Dx) 09/29/2025 1:15 PM EST Office Visit Pulmonology [address] [phone] Kane Miranda MD Moderate persistent asthma without complication (Primary Dx) from Last 3 Months Immunizations Immunization Administration Dates Next Due DTP 07/29/1992, 9,1988,05/24,1988 [id number] (Pentacel) 2mo to less than 5yo 09/20/1989 Hepatitis B Pediatric (Enger ix B; Recombivax HB) to less than 20 yo 10/05/1999,05/05/1999,03/19/1999 Influenza trivalent, with pr eservative (Fluzone; Afluria) 6mo and older 10/17/2014,12/08/2006,09/05/2005,10/04,09/19/2001,09/27/2000,09/10/1999 MMR, measles mumps and rubel la Live (Priorix; M-M-R II) 12mo and older 03/19/1999,05/26/1989 Meningococcal MCV4P 03/19/2009 Moderna SARS-CoV-2 COVID-19, mRNA, LNP-S, preservative free 12/20/2021 OPV 07/29/1992,,1988,03/28 Pfizer SARS-CoV-2 COVID-19, mRNA, LNP-S, preservative free [...] other allergen; COMMENT: ENVIRONMENTAL ALLERGIES-FOLLOWED BY DR. ROGERS-SHOTS X 3 YRS WITHOUT BENEFIT Unspecified asthma(493.90) [...] ES WITH HER MOM Sister 3 Alive 1/2 sister moth er's side; mentally handicapped Social [...] file Travel History Travel Start Travel End [place] 10/02/2025 10/16/2025 Obstetrics History Last Filed Vital Signs Vital [...] Mass Index 28.98 10/17/2025 9:03 AM EST Plan of Treatment Upcoming Encounters Date Type Department Care Team (Late st Contact Info) Description 2026 8:45 AM EST Office Visit Pulmonology [address] [phone] Kane Miranda MD [address] [place] [phone] 09/29/2026 9:45 AM EST Office Visit Pulmonology [facility] [address] [phone] Kane Miranda MD [address] [place] [address] [facility] [place] [phone] Health Maintenance Due Date Last Done Comments HPV Vaccines (1 - 3-dose SCDM series) 2015 Pneumococcal Vaccine: Pediatrics (0 to 5 Years) and At-Risk Patients (6 to 49 Years) (2 of 2 - PCV) 10/17/2015 10/17/2014 Cholesterol Screening (Lipid Panel) 11/05/2022 HIV Screening 11/05/2022 Hepatitis C Screening 11/05/2022 Social Influencers of Health Screening 11/05/2022 Depression Screening 11/27/2024 COVID-19 Vaccine ( season) 2025 12/20/2021, 06/02/2021, 05/12/2021, Additional history exists Influenza Vaccine (#1) 2025 , 10/17/2014, 12/08/2006, Additional history exists DTaP,Tdap,and Td Vaccines (10 - Td or Tdap) 02/21/2033 02/21/2023, 05/08/2009, 06/15/2004, Additional history exists RSV Immunization Adult Patients (1 - 1-dose 75+ series) 2063 HIB Vaccines Completed 09/20/1989, 09/20/1989 IPV Vaccines Completed 07/29/1992, 08/28, 09/20/1989, Additional history exists MMR Vaccines Completed 03/19/1999, 05/26/1989 Hepatitis B Vaccines Completed 10/05/1999, 05/05/1999, 03/19/1999 Meningococcal ACWY Vaccine Aged Out 03/19/2009 N o longer eligible based on patient's age to complete this topic Hepatitis A Vaccines Aged Out No long er eligible based on patient's age to complete this topic Meningococcal B Vaccine Aged Out No l onger eligible based on patient's age to complete this topic RSV Immunization Patients Under 20 months Aged Out No longer eligible based on patient's age to complete this topic Varicella Vaccines Aged Out No longer eligible based on patient's age to complete this topic Insurance [facility] Care Teams Memory Care Program Resident Relationship Specialty Start Date End Date Osiel Tierney MD [address] [place] [address] PCP - General Internal Medicine 11/26/18
--- OUTSIDE RECORDS SUMMARY | 2025-10-21 18:38 | XMS_ITS | Data Portability ---
Author Organization [facility] - Cristopher Pacheco [facility], [facility] Address [address] [place] [address] Assessment Encounter Date Assessment Date Assessment LastModified by Organization Details LastModified Time 02/28/2024 02/28/2024 Foot and Ankle Follow-up Patient Note CC/Diagnosis: left os trigonum syndrome, FHL tenosynovitis DOS: months HPI: Miller presents for routine follow-up. Last seen in December. Here today for follow-up and MRI review. Report he has recently been doing very well. He has been moderating his activity and not running as much and has not had symptoms in his left hindfoot for a number of weeks. Happy with his recovery to date. Has been slowly increasing activity without current return of symptoms. Rates his pain as a 0/10. No other complaints. Past family history, medical history, social history, allergies, and review of systems has been reviewed, updated and are located in the patient's chart. PHYSICAL EXAM: Constitutional: Healthy appearing individual in no acute distress Psychiatric: Alert and oriented Respiratory: Unlabored breathing Lymphatic: No lymphadenopathy in the foot/ankle Skin: No open wounds CV: Palpable pedal pulses Neuro: Light touch grossly intact MSK: Focused examination of the left foot and ankle- On standing exam his alignment appropriate. No deformity. Equal to the contralateral side. On seated exam he has no swelling or ecchymosis. No signs of trauma. No trigger points on palpation around the ankle joint including posteriorly. Full ankle and hindfoot range of motion without pain. Full passive hallux range of motion without pain. No pain behind the ankle with extreme dorsiflexion of the hallux MTP. Motor exam- intact dorsiflexion/plant arflexion, inversion/eversion Sensory exam- reports sensation intact to light touch SP/DP/S/S/T distributions Palpable DP/PT pulses, foot warm and well perfused, appropriate capillary refill IMAGING: Previous x-rays of the left ankle reviewed. He has an intact symmetric mortise without evidence of instability. Appropriate lateral alignment. No acute bony abnormality. Os trigonum present pushed her to the talus. MRI of the left ankle and hindfoot dated 02/07/2024 for available in the [facility] EMR reviewed. Patient has T2 signal intensity consistent with edema within the OS trigonum, fluid around the FHL tendons at this level consistent with tenosynovitis. No obvious intraarticular pathology of the ankle. ASSESSMENT: Left OS trigonum syndrome, FHL tenosynovitis PLAN: We reviewed his diagnosis, treatment to date, plan moving forward. View his MRI in detail. History and exam are consistent with MRI findings. Lately he has been asymptomatic. Doing very well. At this point I do not have restrictions for him. Recommend he continue ramping up activity as tolerated. Discussed conservative measures including anti-inflammatory modalities, activity modification, supportive shoe wear, ankle compression sleeve as needed. If his symptoms return we can consider a corticosteroid injection with fluoroscopy guidance in the future. If he fails conservative measures there are surgical treatment options available, but considering how well he is doing plan to hold off on this for now. Plan to see him again in the future on an as-needed basis or if his symptoms return. Patient agrees with the plan, all questions answered. [email or web address] Not available 02/29/2024 11:35:19 Plan of Treatment Reminders Order Date Submit Date Provider Last Modified By Organization Details Last Modified Time Details Appointments None record ed. Lab None record ed. Referral None record ed. Procedures None record ed. Surgeries None record ed. Imaging None record ed. Medication Orders None record ed. Patient TargetsNo targets recorded. Patient InstructionsNo instructions recorded. Reason for Referral None Reported. Results Created Date Observation Date Name Description Value Unit Range Abnormal Flag Note LastModifiedBy Organization Detail LastModifiedTime 02/07/20 24 02/07/2024 MRI, ankle , w/o contr ast [facility] [place] Access ion Number : [id number] Pura freedman Name: Miller Jimenez jane Record Number : [id number] Date of : 1989 Date of Exam: 2023 Referr ing Physic chitra: Jernigan, Kenny NEOS [address] [place], [place] [address] Exam: MR Ankle (C-) CPT 48129 - Left Room Descri ption: Pansey GE Pion 3T CLINIC AL HISTOR Y: Chroni c left wool buyer ior ankle pain.. TECHNI QUE: MR of the left ankle was perfor med withou t intrav enous contra st. COMPAR CAREN: None. FINDIN GS: Bone and articu lar cartil age: No acute fractu re or eviden ce of osteon ecrosi s. Full-t hickne ss chondr al fissur es are seen centra lly in the navicu lar along the talona vicula r joint with adjace nt subcho ndral marrow edema. Mild bony prolif eratio n along the dorsal aspect of the talona vicula r joint is seen. There is a small os trigon um with no associ ated bone marrow edema. Ligame nts: The anteri or and wool buyer ior tibiof ibular , anteri or and wool buyer ior talofi bular and calcan eofibu lar ligame nts appear intact . The deltoi d and Lisfra nc ligame nts appear intact . Tendon s: The Achill es tendon is intact . There is mild edema within the distal aspect of the soleus muscle . There is insert ional tendin opathy wool buyer ior tibial is. The flexor and extens or tendon s otherw ise appear intact . Lobula yee appear ance of fluid along the wool buyer ior in the inferi or aspect of the flexor halluc is longus tendon sheath , which may reflec t gangli on versus stenos ing tenosy noviti s (image 15 of series 6). The perone al tendon s are intact . There is preser nickie fat signal in the sinus Tarsi. The includ ed portio n the planta r fascia is intact . IMPRES ROGER: 1. Mild strain of the distal soleus muscle with an intact appear ance of the Achill es tendon . 2. Lobula yee fluid signal along the wool buyer ior inferi or aspect of the flexor halluc is longus tendon sheath , which may reflec t gangli on versus stenos ing tenosy noviti s. 3. Insert ional tendin opathy of the wool buyer ior tibial is tendon . 4. Mild degene rative change of the talona vicula r joint. Electr onical ly Signed By: Ara Hernandez ra, MD [email or web address] [facility] ([facility] [address], [place], [address], 02/08/2024 10:34:00 02/09/20 24 02/07/2024 MRI, ankle , w/o contr ast No observ ation record ed. BARCODE Not Available 2023 10:44:08 Result Notes None recorded. Problems Name Problem SNOMED Code Status Onset Date Resolution Date Notes Provider Name and Address Organization Details Recorded Time Os trigonum impingement 922116846 Active 2023 Kenny Jernigan MD [address], [place], [phone], [facility] - [facility] 4 11:29:39 Problem Notes None recorded. Medical Equipment None Reported. Allergies Allergen ID Allergen Name Allergen Category Reaction Reaction Severity Criticality Documentation Date Start Date Code Code System Note Provider Name and Address Organization Details Recorded Time 381581 Dust mite Not available Not available Not available Not available 05/21/20242023 Aller gyNam e: 'Dust '; Not Available [facility] 4 09:09:07 [id number] Shellfish (substanc e) food,medi cation Not available Not available Not available 05/21/20242023 [id number] SNOMED Not Available [facility] 4 09:09:07 Medications Name Sig Start Date Stop Date Status Note LastModified by Organization Details LastModified Time metoprolol succinate ER 50 mg tablet,exten ded release 24 hr TAKE 1 TABLET BY MOUTH EVERY DAY active Not Available Not Available No t Available alclometason e 0.05 % topical cream PLEASE SEE ATTACHED FOR DETAILED DIRECTIONS active Not Available Not Available N ot Available armodafinil 250 mg tablet TAKE 1 TAB BY MOUTH EVERY DAY HYPERSOMNIA active Not Available Not Available Not Available Wixela Inhub 250 mcg-50 mcg/dose powder for inhalation TAKE 1 PUFF BY MOUTH TWICE A DAY *RINSE MOUTH AFTER USE* active Not Available Not Available No t Available Vitals Date Recorded Body weight Body mass index (BMI) Body height Provider Name and Address Organization Details Last Updated DateTime 02/28/2024 66947.66 g 27.4 kg/m2 170.18 cm Concepción Sullivan [place] - [facility] 02/28/2024 15:19:41 Social History None recorded. Functional Status None recorded. Mental Status None recorded. Family History Nothing Reported. Medical History Condition Response Allergies/Hayfever N Coronary Artery Disease N Anxiety/Depression N Emphysema N Thyroid Problems N COPD N Pacemaker N Kidney/Bladder Problems N Anemia N Vascular Disease N Gastrointestinal Disease N Heart Attack (NC) N Diabetes N Autoimmune disease N Bleeding Disorder N Orthotics N Arthritis N Seizures/Epilepsy N Blood Clot N AIDS/HIV N Congestive Heart Failure (CHF) N Acid Reflux (GERD) N Cancer N Stroke N Asthma N Peripheral Vascular Disease N Sleep Apnea N Hepatitis N Heart Disease N Rheumatoid Arthritis N Arrhythmia N Pulmonary Embolism N Fibromyalgia N Hypertension N Osteoporosis N Past Encounters Encounter ID Performer Location Encounter Start Date Encounter Closed Date Diagnosis/Indication Diagnosis SNOMED-CT Code Diagnosis ICD10 Code Diagnosis IMO Codes Diagnosis Note [id number] [facility] [address] [address] [place] [address] 02/28/2024 15:06:26 03/19/2024 08:14:20 Os trigonum impingement 229158241 M25.872 Health Concerns Section Related Observation LastModified by Organization Detai ls LastModified Time None Recorded Concern Status LastModified by Organization Details LastModified Time None Recorded Advance Directives Directive None Recorded Payers Insurance Date Sequence Insurance Name Policy Number Policy Calderon Covered Member ID Calderon Member ID Guarantor Name 03/19/[address] [place] [address] ([facility]) [id number] Miller Jimenez [id number] Miller Jimenez
--- OUTSIDE RECORDS SUMMARY | 2025-10-21 18:38 | XMS_ITS | Clinical Summary ---
Author Organization [facility] Address [address] [place] [phone] Phone Care Team Providers Care Orthopedic Cast Specialist Name Role Phone Vivi Cheney MD Primary Care Provider Allergies Active Allergy Reactions Criticality Noted Date Comments Ibuprofen 04/22/2018 Nsaids (Non-Steroidal Anti-Inflammatory Drug) Wheezing 01/24/2006 chest tightness noted sometime in the past when ibuprofen taken. Shellfish Containing Products 10/17/2014 Medications armodafinil (NUVIGIL) 250 mg tablet Take 250 mg by mouth daily. Active albuterol 90 mcg/actuation inhaler Inhale 2 puffs into the lungs every 6 (six) hours as needed for wheezing. Active acetaminophen (TYLENOL EXTRA STRENGTH) 500 MG tablet Take by mouth. Activ e EPINEPHrine (SYMJEPI) 0.3 mg/0.3 mL syringe Inject as directed. 0 Active fluticasone furoate-vilante roL (BREO ELLIPTA) 200-25 mcg/dose inhaler Inhale into the lungs. Active miconazole nitrate, bulk, Powd 1 applicator. 1 Active fluconazole (DIFLUCAN) 150 MG tablet 1 tab daily for 3 days 3 tablet 1 Active albuterol 90 mcg/actuation inhaler Inhale 2 puffs into the lungs every 6 (six) hours as needed for wheezing or shortness of breath/dyspnea . 6.7 g 3 2 Active Active Problems Problem Noted Date Diagnosed Date COVID-19 long hauler 08/27/2021 History of 2019 novel coronavirus disease (COVID -19) 04/04/2021 Tachycardia 03/03/2021 Overview (11/04/2021): Last Assessment & Plan: Patient feels fatigued [...] tachycardia) 0 02/26/2021 Pulmonary nodule 02/15/2021 Overview (11/04/2021): Noted on [facility] from [facility] on 02/12/2021. Nonspecific 5 mm noncalcified solid nodule of the right lower lobe. Refer to pulmonology for follow-up screening. Moderate persistent asthma without complication 07/15/2020 Tinea versicolor 01/28/2011 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 Overview (11/04/2021): Previously followed by Tomeka Maria, [facility] Nuvigil 250 mg daily Xanax 0.25 mg as needed Allergic rhinitis due to other allergen 12/22/19 06 Immunizations Immunization Administration Dates Next Due DTP 07/29/1992, 9,1988,05/24,1988 [id number] 09/20/1989 Hepatitis B 10/05/1999,05/05/1999,03/19/1999 Hib,HbOC 09/20/1989 INFLUENZA, SPLIT VIRUS, TRIV ALENT W/ PRESERVATIVE IM 10/17/2014,12/08/2006,09/05/2005,10/04,09/19/2001,09/27/2000,09/10/1999 Influenza Quadrivalent Prese rvative Free IM 09/26/2020 MMR 03/19/1999,05/26/1989 Meningococcal MCV4P 03/19/2009 Pneumococcal polysaccharide PPSV23 10/17/2014 Polio - OPV 07/29/1992, 9,1988,03/28 Td (adult),2 Lf Tetanus Toxo id, PF, Adsorbed 05/05/1999 Td, unspecified formulation 06/15/2004 Tdap 05/08/2009 Social History Tobacco Use Types Packs/Day Years Used Date Smoking Tobacco: Never Smokeless Tobacco: Never Alcohol Use Standard Drinks/Week Comments Yes 0 (1 standard drink = 0.6 oz pur e alcohol) Education Answer Date Recorded Are you interested in more education? Not on chayito e 03/24/2023 Are you concerned about learning? Not on file 03/24/2023 No 03/24/2023 No 03/24/2023 Digital Access Answer Date Recorded No 04/22/2023 No 04/22/2023 No 04/22/2023 Reliable internet access at home? Not on file 04/22/2023 Device with a working camera? Not on file Sex and Gender Information Value Date Recorded Sex Assigned at Male 01/30/2021 11:06 AM EST Legal Sex Male 9:30 AM EDT Gender Identity Male 01/30/2021 11:06 AM EST Sexual Orientation Straight 01/30/2021 11 :06 AM EST Last Filed Vital Signs Vital Sign Reading Time Taken Comments Blood Pressure 123/82 05/10/2022 3:22 PM EDT Pulse 72 05/10/2022 3:22 PM EDT Temperature 36.7 C (98.1 F) 05/10/2022 3:22 PM EDT Respiratory Rate 16 05/10/2022 3:22 PM EDT Oxygen Saturation 99% 05/10/2022 3:22 PM EDT Inhaled Oxygen Concentration - - Weight 68.9 kg (152 lb) 11/04/2021 4:02 PM EST Height 171.5 cm (5' 7.5 ) 11/04/2021 4:02 PM EST Body Mass Index 23.46 11/04/2021 4:02 PM EST Plan of Treatment Health Maintenance Due Date Last Done Comments LIPID PANEL 1988 DEPRESSION SCREENING 2000 HEPATITIS C SCREENING 2006 HIV ONE-TIME SCREENING (18-65 YEARS) 2006 PNEUMOCOCCAL VACCINES (0-49 years) (2 of 2 - PCV) 10/17/2015 10/17/2014 Adult Td,Tdap Booster 05/08/2019 05/08/2009 , 06/15/2004, 05/05/1999 INFLUENZA VACCINE (#1) 2025 , 10/17/2014, 12/08/2006, Additional history exists COVID-19 VACCINE (2024- season) 2025 12/20/2021, 06/02/2021, 05/27/2021, Additional history exists HIB VACCINES Completed 09/20/1989, 09/20/1989 MENINGOCOCCAL VACCINES (ACWY) Aged Out 03/19/2009 No longer eligible based on patient's age to complete this topic SMOKING STATUS SCREENING (Once After 26 Yrs) Completed 04/22/2018 HEPATITIS A VACCINES Aged Out No long er eligible based on patient's age to complete this topic MENINGOCOCCAL VACCINES (B) Aged Out N o longer eligible based on patient's age to complete this topic Medical Devices Not on file Insurance [facility] Care Teams Orthopedic Cast Specialist Relationship Specialty Start Date End Date Vivi Cheney MD PCP - General Internal Medicine 05/10/22 Additional Source Comments The information contained in this document represents components of the legal health record. It is not the complete legal health record.[facility]
== END 2025-10-21 15:15 | disposition home or self-care (01) ==
LOC: HO.HMCFM 14:51
PROVIDERS: PCP Internal Medicine; Visit Provider Internal Medicine
DX: Z00.00 Encounter for general adult medical examination without abnormal findings (principal); J45.40 Moderate persistent asthma, uncomplicated; G47.411 Narcolepsy with cataplexy